=== PATIENT | male | born 1990 | race Caucasian/White ===

== ENCOUNTER 2019-12-14 22:02 | Emergency (ER) | payer SELFPAY ==
[2019-12-14 23:20] LABS: Basophils # (Auto) 0.1 K/mm3 (0.0-0.1); Basophils % (Auto) 0.6 % (0.0-1.8); Eosinophils # (Auto) 0.4 K/mm3 (0.0-0.4); Eosinophils % (Auto) 2.4 % (0.0-4.3); Hematocrit 43.7 % (35.5-45.6); Hemoglobin 14.8 gm/dl (11.8-15.2); Lymphocytes # (Auto) 2.1 K/mm3 (1.2-5.4); Lymphocytes % (Auto) 14.1 % (13.4-35.0); Mean Corpuscular HGB Conc 34 % (32-34); Mean Corpuscular Volume 91 fl (84-94); Monocytes # (Auto) 1.3 K/mm3 (0.0-0.8); Monocytes % (Auto) 8.6 % (0.0-7.3); Platelet Count 282 K/mm3 (140-440)
[2019-12-14] MEDS ORDERED: ONDANSETRON 4 MG/2 ML INJ IV ONE (23:29)
[2019-12-14] MEDS ORDERED: KETOROLAC 30 MG/1 ML INJ IV ONE (23:29)
[2019-12-14] MEDS ORDERED: SODIUM CHLORIDE 0.9% 1000 ML 1,000 ML IV ONE (23:29)
[2019-12-14 23:42] LABS: Alanine Aminotransferase 29 units/L (7-56); Albumin 4.7 g/dL (3.9-5); BUN/Creatinine Ratio 8; Blood Urea Nitrogen 10 mg/dL (9-20); Calcium 9.9 mg/dL (8.4-10.2); Hemolysis Index 12
--- NOTE | 2019-12-15 00:19 | Cat Scan Report ---
CT ABDOMEN AND PELVIS WITHOUT CONTRAST HISTORY: left flank pain - kideny stone rule out. COMPARISON: None. TECHNIQUE: CT images of the abdomen and pelvis were obtained without administration of intravenous co ntrast. All CT scans at this location are performed using CT dose reduction for ALARA by means of au tomated exposure control. FINDINGS: Lungs/bones: Lung bases are clear. Mild degenerative changes are present in the spine with no acute osseous abnormality. Abdomen/pelvis: 2 mm stone in the distal left ureter near the UVJ with mild left-sided hydronephrosi s and perinephric stranding. Additional punctate nonobstructive nephrolithiasis is seen in the lower pole of each respective kidney. The liver, gallbladder, spleen, pancreas, and adrenals appear unremarkable. The stomach is grossly di lated with fluid and food material with a transition in the region of the pylorus. The urinary bladder is mostly collapsed. Prostate is unremarkable. No pelvic free fluid or acute colo nona abnormality identified. The terminal ileum and appendix appear normal. IMPRESSION: 1. 2 mm stone in the distal left ureter near the UVJ with mild hydronephrosis. 2. Grossly distended stomach with food material and fluid with transition in the region of the pyloru s. No gross mass or wall thickening identified. 3. Additional punctate nonobstructive nephrolithiasis in the kidneys. Signer Name: Da Rajput MD Signed: 12/15/2019 12:15 AM Workstation Name: [id number]
[2019-12-15 00:27] LABS: Bacteria,Urine 1+ /HPF (Negative); Bilirubin,Urine NEG (Negative); Blood,Urine SM (Negative); Color,Urine Yellow (Yellow); Mucus,Urine FEW /HPF; Protein,Urine <15 mg/dL mg/dL (Negative); Urobilinogen,Urine < 2.0 mg/dL (<2.0)
[2019-12-15] MEDS ORDERED: ONDANSETRON 4 MG/2 ML INJ IV ONE (00:42)
[2019-12-15] MEDS ORDERED: MORPHINE 4 MG/1 ML INJ IV ONE (00:42)
--- NOTE | 2019-12-15 00:49 | Emergency Department Report ---
ED Male HPI - General Chief complaint: Abdominal Pain Stated complaint: FLANK PAIN, PAIN WHEN BREATHING Source: patient Mode of arrival: Ambulatory Limitations: Language Barrier - History of Present Illness Initial comments: Patient is a 29-year-old male with a history of chronic kidney stones who presents to the ED with complaint of acute onset persistent severe left flank pain is reduced to the left inguinal area with nausea and vomiting for the last 2 days, worse in the last 12 hours. Patient states that the patient is constant but waxes and wanes. Patient denies testicular pain, dysuria, hematuria, urinary frequency and urgency, dizziness, chest pain, fever, chills, low back pain, traumatic injury or heavy lifting. Patient states that the pain is similar to the pinnae had when he had kidney stones MD Complaint: groin pain (LEFT), other (Left flank pain; nausea and vomiting) -: Sudden, days(s) (2) Location: left flank Radiation: none Severity scale (0 -10): 8 Quality: aching, sharp Consistency: constant Improves with: none Worsens with: none denies other symptoms, blood in urine, nausea/vomiting. denies: discharge, swe lling, mass, rash, urinary retention, fever, incontinence - Related Data Sexually active: Yes Previous Rx's Medication Instructions Recorded Last Taken Type Ciprofloxacin HCl [Ciprofloxacin 500 mg PO Q12HR #20 tab 12/15/19 Unknown Rx TAB] HYDROcodone/APAP 7.5-325 [Osyka 1 each PO Q6HR PRN #12 tablet 12/15/19 Unknown Rx 7.5/325] Ketorolac [Toradol] 10 mg PO Q8H PRN #20 tablet 12/15/19 Unknown Rx Ondansetron [Zofran Odt] 4 mg PO Q6HR PRN #20 tab.rapdis 12/15/19 Unknown Rx Tamsulosin [Flomax] 0.4 mg PO QDAY #10 cap 12/15/19 Unknown Rx Allergies Allergy/AdvReac Type Severity Reaction Status Date / Time No Known Allergies Allergy Verified 12/14/19 22:06 ED Review of Systems ROS: Stated complaint: FLANK PAIN, PAIN WHEN BREATHING Other details as noted in HPI Constitutional: denies: chills, fever Eyes: denies: eye pain, eye discharge, vision change ENT: denies: ear pain, throat pain Respiratory: denies: cough, shortness of breath, wheezing Cardiovascular: denies: chest pain, palpitations Endocrine: no symptoms reported Gastrointestinal: abdominal pain (left flank pain), nausea, vomiting. denies: diarrhea, constipation, hematemesis, melena Genitourinary: denies: urgency, dysuria, frequency, hematuria, discharge, david ticular pain, testicular mass, other Musculoskeletal: denies: back pain, joint swelling, arthralgia Skin: denies: rash, lesions Neurological: denies: headache, weakness, paresthesias Psychiatric: denies: anxiety, depression Hematological/Lymphatic: denies: easy bleeding, easy bruising ED Past Medical Hx - Past Medical History Previous Medical History?: Yes Hx Kidney Stones: Yes - Surgical History Past Surgical History?: No - Social History Smoking Status: Former Smoker Substance Use Type: None - Medications Home Medications: Home Medications Medication Instructions Recorded Confirmed Last Taken Type Ciprofloxacin HCl [Ciprofloxacin 500 mg PO Q12HR #20 tab 12/15/19 Unknown Rx TAB] HYDROcodone/APAP 7.5-325 [Osyka 1 each PO Q6HR PRN #12 tablet 12/15/19 Unknown Rx 7.5/325] Ketorolac [Toradol] 10 mg PO Q8H PRN #20 tablet 12/15/19 Unknown Rx Ondansetron [Zofran Odt] 4 mg PO Q6HR PRN #20 tab.rapdis 12/15/19 Unknown Rx Tamsulosin [Flomax] 0.4 mg PO QDAY #10 cap 12/15/19 Unknown Rx ED Physical Exam - General Limitations: Language Barrier General appearance: alert, in no apparent distress - Head Head exam: Present: atraumatic, normocephalic, normal inspection - Eye Eye exam: Present: normal appearance, PERRL, EOMI Pupils: Present: normal accommodation - ENT ENT exam: Present: normal exam, normal orophraynx, mucous membranes moist, TM's normal bilaterally, normal external ear exam - Neck Neck exam: Present: normal inspection, full ROM. Absent: tenderness, meningismus, lymphadenopathy - Respiratory Respiratory exam: Present: normal lung sounds bilaterally. Absent: respiratory distress, wheezes, rales, rhonchi, stridor, chest wall tenderness, decreased breath sounds, prolonged expiratory - Cardiovascular Cardiovascular Exam: Present: regular rate, normal rhythm, normal heart sounds. Absent: systolic murmur, diastolic murmur, rubs, gallop - GI/Abdominal GI/Abdominal exam: Present: soft, tenderness (Palpable left flank tenderness), normal bowel sounds. Absent: guarding, rebound, rigid, hyperactive bowel sounds, hypoactive bowel sounds - Extremities Exam Extremities exam: Present: normal inspection, full ROM, normal capillary refill. Absent: tenderness - Back Exam Back exam: Present: normal inspection, full ROM, tenderness (palpable lumbosacral paraspinal musculoskeletal tenderness; positive for left flank tenderness), CVA tenderness (L), muscle spasm, paraspinal tenderness - Neurological Exam Neurological exam: Present: alert, oriented X3 - Psychiatric Psychiatric exam: Present: normal affect, normal mood - Skin Skin exam: Present: warm, dry, intact, normal color. Absent: rash ED Course Vital Signs 12/14/19 23:02 Temperature 97.4 F L Pulse Rate 76 Respiratory 18 Rate Blood Pressure 160/98 [Left] O2 Sat by Pulse 100 Oximetry ED Medical Decision Making - Lab Data Result diagrams: 12/14/19 23:07 12/14/19 23:07 - Radiology Data Radiology results: report reviewed, image reviewed Findings [facility] [address] [place] [address] Cat Scan Report Signed Patient: CARA LANDIN MR#: [id number] : 1990 Acct:[id number] Age/Sex: 29 / M ADM Date: 12/14/19 Loc: ED Attending Dr: Ordering Physician: BRUCE VEE Date of Service: 12/14/19 Procedure(s): CT abdomen pelvis wo con Accession Number(s): [id number] cc: BRUCE VEE CT ABDOMEN AND PELVIS WITHOUT CONTRAST HISTORY: left flank pain - kideny stone rule out. COMPARISON: None. TECHNIQUE: CT images of the abdomen and pelvis were obtained without administration of intravenous contrast. All CT scans at this location are performed using CT dose reduction for ALARA by means of automated exposure control. FINDINGS: Lungs/bones: Lung bases are clear. Mild degenerative changes are present in the spine with no acute osseous abnormality. Abdomen/pelvis: 2 mm stone in the distal left ureter near the UVJ with mild left-sided hydronephrosis and perinephric stranding. Additional punctate nonobstructive nephrolithiasis is seen in the lower pole of each respective kidney. The liver, gallbladder, spleen, pancreas, and adrenals appear unremarkable. The stomach is grossly dilated with fluid and food material with a transition in the region of the pylorus. The urinary bladder is mostly collapsed. Prostate is unremarkable. No pelvic free fluid or acute colonic abnormality identified. The terminal ileum and appendix appear normal. IMPRESSION: 1. 2 mm stone in the distal left ureter near the UVJ with mild hydronephrosis. 2. Grossly distended stomach with food material and fluid with transition in the region of the pylorus. No gross mass or wall thickening identified. 3. Additional punctate nonobstructive nephrolithiasis in the kidneys. Signer Name: Da Rajput MD Signed: 12/15/2019 12:15 AM Workstation Name: [id number] Transcribed By: NAINA Dictated By: Da Rajput MD Electronically Authenticated By: Da Rajput MD Signed Date/Time: 12/15/19 0015 DD/ 001 TD/TT: - Medical Decision Making This is a 29-year-old male who presented to the ED with acute onset persistent severe left flank pain with nausea and vomiting for 2 days. Patient has a history of kidney stones and suspected that the symptoms may be related his recurrent kidney stones. In the ED, patient is alert and oriented 3 and is not in distress but appears to be in significant pain. Lab test results were reviewed acute leukocytosis of 14,700. The rest of the lab test results are That is the left is also non-actionable. The abdomen and pelvis CT scan without contrast shows a 1. 2 mm stone in the distal left ureter near the UVJ with mild hydronephrosis. It also shows grossly distended stomach with food material and fluid with transition in the region of the pylorus. No gross mass or wall thickening identified. Additional punctate nonobstructive nephrolithiasis in the kidneys. On reevaluation, patient's pain is well-controlled medications. Patient was discharged home on pain medications and antiemetics, and was advised to follow-up with a urologist Dr. Ray, and then will follow up in 5-7 days. Patient was advised to return to the ED immediately if symptoms get worse. - Differential Diagnosis Kidney stones; UTI; Traumatic Critical care attestation.: If time is entered above; I have spent that time in minutes in the direct care of this critically ill patient, excluding procedure time. ED Disposition Clinical Impression: Acute abdominal pain in left flank, Nausea and vomiting in adult, Kidney stone on left side Disposition: TO HOME OR SELFCARE Is pt being admited?: No Does the pt Need Aspirin: No Condition: Stable Instructions: Kidney Stones (ED), Flank Pain (ED), Acute Nausea and Vomiting (ED) Additional Instructions: Los resultados de alexis prueba muestran que tiene clculos renales a la izquierda, que miden 2 mm, lo que es probable que pase. Por lo tanto, tome medicamentos con alimentos, mary muchos lquidos y jayro un seguimiento con el urlogo Dr. Prasad en 3-5 north para la reevaluacin. Regrese al servicio de urgencias de inmediato si los sntomas empeoran. Prescriptions: Ciprofloxacin HCl [Ciprofloxacin TAB] 500 mg PO Q12HR #20 tab Tamsulosin [Flomax] 0.4 mg PO QDAY #10 cap HYDROcodone/APAP 7.5-325 [Osyka 7.5/325] 1 each PO Q6HR PRN #12 tablet PRN Reason: Pain Ketorolac [Toradol] 10 mg PO Q8H PRN #20 tablet PRN Reason: Pain Ondansetron [Zofran Odt] 4 mg PO Q6HR PRN #20 tab.rapdis PRN Reason: Nausea Referrals: ESTRELLA DONOHUE MD [Staff Physician] - 3-5 Days Time of Disposition: 01:00 Print Language: TAJIK
[2019-12-15 01:28] VITALS: BP 147/89
== END 2019-12-15 01:27 | disposition home or self-care (01) ==
LOC: ED 22:02
DX: N20.0 Calculus of kidney (principal); Z87.891 Personal history of nicotine dependence
CPT/HCPCS: 36415; 74176; 80053; 81001; 85025; 96374; 96375; 96376; 99284; J1885; J2270; J2405; J7030